=== PATIENT | male | born 1975 | race Caucasian/White ===

== ENCOUNTER 2016-12-01 09:25 | Day surgery (SDC) | payer OTHER ==
[~2016-12-01] VITALS: Ht 165.1 cm; Wt 63.5 kg
[2016-12-01] VITALS (9 sets, daily range): BP systolic 109–125; BP diastolic 56–75; PULSE 62–70; RESP 14–19; Ht 165.1 cm; Wt 63.5 kg
[2016-12-01] MEDS ORDERED: BUPIVACAINE 0.5% (SDV) 30 ML INJ ONE (11:15)
[2016-12-01] MEDS ORDERED: LIDOCAINE 2% (MDV) 20 ML INJ ONE (11:15)
[2016-12-01] MEDS ORDERED: BUPIVACAINE 0.25% (MPF) 30 ML INJ ONE (11:15)
[2016-12-01] MEDS ORDERED: MIDAZOLAM 1 MG/ML 2 ML INJ ONE (11:37)
[2016-12-01] MEDS ORDERED: LIDOCAINE 1% (MDV) 20 ML INJ ONE (11:37)
[2016-12-01] MEDS ORDERED: PROPOFOL 20 ML ONE (11:37)
[2016-12-01] MEDS ORDERED: CEFAZOLIN 1 GM INJ ONE (11:50)
[2016-12-01] MEDS ORDERED: ONDANSETRON 4 MG INJ ONE (11:52)
[2016-12-01] MEDS ORDERED: DEXAMETHASONE 4 MG/ML 1 ML INJ ONE (11:52)
[2016-12-01] MEDS ORDERED: BUPIVACAINE 0.25% (MPF) 30 ML INJ INJ ONE (11:59)
--- NOTE | 2016-12-01 12:15 | OPR ---
Date/Time of Note Date/Time of Note DATE: 12/01/16 TIME: 12:14 Operative Report Procedure Date: Dec 01, 2016 Preoperative Diagnosis right scalp mass Postoperative Diagnosis same Operation Performed excision of right scalp mass 5 cm incision 5 x 3 cm mass localized adjacent tissue transfer with the use of skin flaps 15 sq cm defect Surgeon: Breann JOHNSON Specimens right scalp mass Breann JOHNSON Dec 01, 2016 12:14
[2016-12-01] MEDS ORDERED: DIPHENHYDRAMINE 50 MG INJ IV PRN (12:30)
[2016-12-01] MEDS ORDERED: HYDROmorphONE (0.2 MG/ML) 10ML SYG IV PRN ×2 (12:30)
[2016-12-01] MEDS ORDERED: MEPERIDINE 25 MG INJ IV PRN (12:30)
[2016-12-01] MEDS ORDERED: HYDROCODONE/APAP (5/325) TAB PO ONE (12:30)
--- NOTE | 2016-12-01 12:36 | OPR ---
DATE OF OPERATION: 12/01/2016 INDICATION: This is a 41-year-old male with a scalp mass. He requests surgical excision. Risks, a lternatives, benefits, and personnel were discussed with the patient. Potential complications inclu ding but not limited to bleeding, infection, scar, alopecia, nonhealing, wound dehiscence were discu ssed with the patient. Patient expressed understanding and consents to the operation. PREOPERATIVE DIAGNOSIS: Right scalp mass. POSTOPERATIVE DIAGNOSIS: Right scalp mass. OPERATION PERFORMED: 1. Excision of right scalp mass with 5 cm size incision and 5 x 3 cm size mass. 2. Localized adjacent tissue transfer with the use of skin flaps with 15 square cm defect. SURGEON: Sofía Swenson MD SPECIMEN: Right scalp mass. COMPLICATIONS: None. ANESTHESIA: General. DESCRIPTION OF PROCEDURE: The patient was taken to the OR and prepped and draped in the usual ster ile fashion. Surgical timeout was performed. IV antibiotics were given. An elliptical incision is made circumferentially around the right scalp mass with a 15 blade. Dissection cautery was carried down all the way to the bone. The mass was circumferentially excised. A large tissue defect was i dentified. Bilateral skin flaps were created with cautery and locally advanced with interrupted 2-0 Vicryl, interrupted 3-0 Vicryl and the skin was closed with running 4-0 Monocryl. Local anesthesia was injected. Dry dressings were applied. Dictated By: SOFÍA LAWS/DAVID Conf#: [id number] DID#: [id number]
[2016-12-01] MEDS ORDERED: CEFAZOLIN 2 GM/50 ML (PMX) 50 ML IVPB ONE (13:00)
[2016-12-01] MEDS ORDERED: SOD CHLORIDE 0.9% 1,000 ML IV SCH (13:00)
== END 2016-12-01 14:10 | disposition home or self-care (01) ==
LOC: SDS 09:25
PROVIDERS: ATTEND Surgery
DX: L72.8 Other follicular cysts of the skin and subcutaneous tissue (principal)
CPT/HCPCS: 14020; 88307; J0690; J1100; J2250; J2405; Z7512; Z7610